=== PATIENT | female | born 1995 | race Caucasian/White ===

== ENCOUNTER 2016-10-28 00:39 | Emergency (ER) | payer MEDICAID ==
[~2016-10-28] VITALS: Ht 167.6 cm; Wt 50.3 kg
[~2016-10-28 00:39] MED LIST: ALBU8.5H5; AMIT25TA PO; DEPRESSION MED; GUAI100L6 PO; ONDA4TAB7 PO; PREN1TAB10 PO; ZOLP-413 PO
[2016-10-28] MEDS ORDERED: LIDOCAINE 1%, 20ML ONE (01:39)
[2016-10-28] MEDS ORDERED: BACITRACIN ZINC OINT 500U/GM, 0.9 GM ONE (01:39)
[2016-10-28] MEDS ORDERED: DIPH,PERTUSS(ACELL),TET VAC/PF 0.5 ML IM-VACC ONE (01:40)
[2016-10-28 01:59] LABS: BLOOD UREA NITROGEN 10 mg/dL (7-18)
[2016-10-28] MEDS ORDERED: LIDOCAINE 1%, 20ML SQ ONE (02:00)
[2016-10-28] MEDS ORDERED: DIPHTHERIA-TETANUS ADULT 0.5ML IM-VACC ONE (02:00)
[2016-10-28 03:31] VITALS: BP 108/76
== END 2016-10-28 03:41 | disposition home or self-care (01) ==
LOC: ED 01:37
DX: S01.81XA Laceration without foreign body of other part of head, initial encounter (principal); S16.1XXA Strain of muscle, fascia and tendon at neck level, initial encounter; S70.311A Abrasion, right thigh, initial encounter; W19.XXXA Unspecified fall, initial encounter; Y93.89 Activity, other specified; Y99.8 Other external cause status; Y92.410 Unspecified street and highway as the place of occurrence of the external cause
CPT/HCPCS: 12051; 36415; 70450; 71020; 72072; 72125; 80048; 82040; 84703; 85025; 90471; 90714; 93005

== ENCOUNTER 2016-11-08 18:56 | Emergency (ER) | payer MEDICAID ==
[~2016-11-08] VITALS: Ht 167.6 cm; Wt 49.3 kg
[2016-11-08 18:59] VITALS: BP 101/64
== END 2016-11-08 19:40 | disposition home or self-care (01) ==
LOC: ED 19:34
DX: S01.81XD Laceration without foreign body of other part of head, subsequent encounter (principal); G43.909 Migraine, unspecified, not intractable, without status migrainosus; J45.909 Unspecified asthma, uncomplicated; Z90.49 Acquired absence of other specified parts of digestive tract; X58.XXXD Exposure to other specified factors, subsequent encounter
CPT/HCPCS: 99281

== ENCOUNTER 2017-02-05 17:30 | Emergency (ER) | payer MEDICAID ==
[~2017-02-05] VITALS: Ht 167.6 cm; Wt 49.0 kg
[2017-02-05 21:26] VITALS: BP 131/92
== END 2017-02-05 21:54 | disposition home or self-care (01) ==
LOC: ED 17:58
DX: T74.21XA Adult sexual abuse, confirmed, initial encounter (principal); R10.2 Pelvic and perineal pain; G43.909 Migraine, unspecified, not intractable, without status migrainosus; F17.210 Nicotine dependence, cigarettes, uncomplicated; J45.909 Unspecified asthma, uncomplicated; Y92.488 Other paved roadways as the place of occurrence of the external cause
CPT/HCPCS: 99283

== ENCOUNTER 2018-01-16 23:23 | Emergency (ER) | payer MEDICAID ==
[~2018-01-16] VITALS: Ht 167.6 cm; Wt 49.8 kg
[2018-01-17] MEDS ORDERED: ONDANSETRON ODT 4 MG PO ONE (00:30)
[2018-01-17] MEDS ORDERED: SODIUM CHLORIDE 0.9% 1,000ML IVBOLUS ONE (00:30)
[2018-01-17] MEDS ORDERED: SODIUM CHLORIDE FLUSH 10ML SYR IVF ONE (00:30)
[2018-01-17] MEDS ORDERED: ONDANSETRON ODT 4 MG ONE (00:51)
[2018-01-17 00:53] LABS: BASOPHILS # (AUTO) 0.04 x10^3/uL (0-0.1); BASOPHILS % (AUTO) 1 % (0-1); EOSINOPHILS # (AUTO) 0.04 x10^3/uL (0-0.4); EOSINOPHILS % (AUTO) 1 % (1-7); LYMPHOCYTES # (AUTO) 2.12 x10^3/uL (1-3.4); LYMPHOCYTES % (AUTO) 41 % (22-44); MD NO; MEAN CORPUSCULAR HEMOGLOBIN 28.7 pg (27.0-34.8); MEAN CORPUSCULAR HGB CONC 33.5 g/dL (32.4-35.8); MEAN CORPUSCULAR VOLUME 85.8 fL (80-100); MEAN PLATELET VOLUME 8.1 fL (7.4-10.4); MONOCYTES # (AUTO) 0.73 x10^3/uL (0.2-0.8); MONOCYTES % (AUTO) 14 % (2-9); NEUTROPHILS % (AUTO) 44 % (42-75); PLATELET COUNT 306 x10^3/uL (130-400); RED BLOOD COUNT 4.95 x10^6/uL (3.82-5.3); RED CELL DISTRIBUTION WIDTH 13.5 % (9.6-15.2)
[2018-01-17 00:55] LABS: CULTURE INDICATED? YES; MICROSCOPIC INDICATED
[2018-01-17 01:03] LABS: CHLORIDE 101 mmol/L (98-107)
[2018-01-17 01:04] LABS: ALBUMIN 4.1 g/dL (3.4-5.0); ANION GAP 7 mmol/L (5-15); CALCIUM 9.6 mg/dL (8.5-10.1)
[2018-01-17 01:09] LABS: ALANINE AMINOTRANSFERASE 23 U/L (12-78); ALKALINE PHOSPHATASE 57 U/L (45-117); BILIRUBIN,TOTAL 0.4 mg/dL (0.2-1.0); CREATININE 1.07 mg/dL (0.55-1.02); TOTAL PROTEIN 8.1 g/dL (6.4-8.2)
[2018-01-17 01:54] VITALS: BP 111/56
[2018-01-17] MEDS ORDERED: NITROFURANTOIN (MACROBID) 100 MG CAPSULE PO ONE (02:00)
[2018-01-17] MEDS ORDERED: LIDOCAINE-MPF 2% ,5ML ONE (02:43)
== END 2018-01-17 02:03 | disposition home or self-care (01) ==
LOC: ED 23:59
DX: N30.01 Acute cystitis with hematuria (principal); J45.909 Unspecified asthma, uncomplicated; F17.210 Nicotine dependence, cigarettes, uncomplicated
CPT/HCPCS: 36415; 80053; 81001; 83690; 84703; 85025; 87077; 87086; 87186; 96360; 99284; J7030; Q0162

== ENCOUNTER 2018-02-12 00:55 | Emergency (ER) | payer MEDICAID ==
[~2018-02-12] VITALS: Ht 167.6 cm; Wt 50.0 kg
[2018-02-12 00:59] VITALS: BP 116/75
[2018-02-12] MEDS ORDERED: ONDANSETRON ODT 4 MG ONE (01:21)
[2018-02-12] MEDS ORDERED: ONDANSETRON ODT 4 MG PO ONE (01:30)
[2018-02-12 01:39] LABS: BASOPHILS # (AUTO) 0.03 x10^3/uL (0-0.1); BASOPHILS % (AUTO) 0 % (0-1); CULTURE INDICATED? NO; EOSINOPHILS # (AUTO) 0.16 x10^3/uL (0-0.4); EOSINOPHILS % (AUTO) 2 % (1-7); HCG UR SG 1.025 (1.003-1.030); LYMPHOCYTES # (AUTO) 2.78 x10^3/uL (1-3.4); LYMPHOCYTES % (AUTO) 37 % (22-44); MD NO; MEAN CORPUSCULAR HEMOGLOBIN 28.1 pg (27.0-34.8); MEAN CORPUSCULAR HGB CONC 32.9 g/dL (32.4-35.8); MEAN CORPUSCULAR VOLUME 85.5 fL (80-100); MEAN PLATELET VOLUME 8.2 fL (7.4-10.4); MICROSCOPIC NOT IND; MONOCYTES # (AUTO) 0.69 x10^3/uL (0.2-0.8); MONOCYTES % (AUTO) 9 % (2-9); NEUTROPHILS # (AUTO) 3.95 x10^3/uL (1.8-6.8); NEUTROPHILS % (AUTO) 52 % (42-75); PLATELET COUNT 300 x10^3/uL (130-400); RED BLOOD COUNT 5.11 x10^6/uL (3.82-5.3)
[2018-02-12 01:49] LABS: ANION GAP 7 mmol/L (5-15); CALCIUM 9.1 mg/dL (8.5-10.1); CHLORIDE 108 mmol/L (98-107)
[2018-02-12 01:50] LABS: CREATININE 0.97 mg/dL (0.55-1.02)
[2018-02-12] MEDS ORDERED: DEXAMETHASONE 4 MG TABLET PO ONE (02:00)
[2018-02-12] MEDS ORDERED: DEXAMETHASONE 4 MG TABLET ONE (02:05)
== END 2018-02-12 02:53 | disposition home or self-care (01) ==
LOC: ED 01:28
DX: J02.8 Acute pharyngitis due to other specified organisms (principal); B97.89 Other viral agents as the cause of diseases classified elsewhere; R10.30 Lower abdominal pain, unspecified; R11.2 Nausea with vomiting, unspecified; G43.909 Migraine, unspecified, not intractable, without status migrainosus; J45.909 Unspecified asthma, uncomplicated
CPT/HCPCS: 36415; 80048; 81003; 81025; 82040; 85025; 86308; 87081; 87880; 99284; Q0162

== ENCOUNTER 2020-08-07 10:55 | Outpatient (CLI) | payer MEDICAID | END 2020-08-07 23:59 | disposition home or self-care (01) | LOC: RAD 10:55 → STAR 23:59 | PROVIDERS: ATTEND Nurse Practitioner Psychiatric/Mental Health | DX: R00.0 Tachycardia, unspecified (principal) | CPT/HCPCS: 93005 ==

== ENCOUNTER 2020-09-18 11:56 | Emergency (ER) | payer MEDICAID ==
[~2020-09-18] VITALS: Ht 167.6 cm; Wt 57.0 kg
[2020-09-18 12:11] VITALS: BP 121/74
[2020-09-18 12:52] LABS: BASOPHILS % (AUTO) 0 % (0-1); EOSINOPHILS % (AUTO) 3 % (1-7); LYMPHOCYTES % (AUTO) 35 % (22-44); MEAN CORPUSCULAR HEMOGLOBIN 29.6 pg (27.0-34.8); MEAN CORPUSCULAR HGB CONC 34.1 g/dL (32.4-35.8); MEAN PLATELET VOLUME 8.2 fL (7.4-10.4); MONOCYTES % (AUTO) 18 % (2-9); NEUTROPHILS % (AUTO) 45 % (42-75); PLATELET COUNT 285 x10^3/uL (130-400); RED BLOOD COUNT 4.97 x10^6/uL (3.82-5.3); RED CELL DISTRIBUTION WIDTH 12.9 % (9.6-15.2)
[2020-09-18 13:05] LABS: ALBUMIN 3.7 g/dL (3.4-5.0); ANION GAP 6 mmol/L (5-15); CALCIUM 8.7 mg/dL (8.5-10.1); CHLORIDE 103 mmol/L (98-107)
[2020-09-18 13:07] LABS: CREATININE 0.87 mg/dL (0.55-1.02)
--- NOTE | 2020-09-18 16:26 | NUR ---
na x1
--- NOTE | 2020-09-18 16:33 | NUR ---
na x 2
--- NOTE | 2020-09-18 16:58 | NUR ---
NAX 3
== END 2020-09-18 17:29 ==
LOC: ED 16:00
DX: L03.114 Cellulitis of left upper limb (principal)
CPT/HCPCS: 36415; 80048; 82040; 85025; 99284